=== PATIENT | male | born 1965 | race Caucasian/White ===

== ENCOUNTER → 2016-12-27 | Day surgery (SDC) | payer OTHER ==
[~2016-12-27] VITALS: Ht 172.7 cm; Wt 92.1 kg
[~2016-12-27] MED LIST: JANUVIA25 MG PO; LANTUS100 U/ML SC; METFORMIN500 MG PO
--- NOTE | ~2016-12-27 | O ---
[place], [place] OPERATIVE NOTE NAME: TULIO STEWARD UNIT #: [id number] ROOM: DOCTOR: MARE SHRESTHA MD BIRTHDATE: [birth year] DOS: 12/27/2016 INDICATIONS: A 51-year-old patient who presents with chief complaint of concern about nonspecific abdominal pain and undergoing colonic screening. ALLERGIES: No known medication. SOCIAL HISTORY: Nonsmoker or alcohol consumer. PAST MEDICAL HISTORY: Hypercholesterolemia, hypertension, diabetes mellitus. PAST SURGICAL HISTORY: Unremarkable. PROCEDURE: Today's procedure part of investigation is colonoscopy. PREMEDICATION: Versed and Diprivan. SCOPE: Olympus forward viewing colonoscope 10L video. REPORT: After putting the patient in the left lateral position and after application of lubricant to rectal pouch and digital examination, scope was introduced. Thereafter, under direct visualization, I advanced through the length of colon without difficulty. Base of the cecum explored, appendiceal orifice identified, and ileocecal valve was defined. The patient was gradually extubated from ascending, transverse, descending colon. He tolerated the procedure well. IMPRESSION: Normal colonoscopic examination. PLAN: High fiber food diet. ACTIVITY: Ad yadira. FOLLOWUP: Routinely with you in office, p.r.n. visit with us in [facility]. Thank you very much indeed for your kind referral. [place], [place] OPERATIVE NOTE NAME: TULIO STEWARD UNIT #: [id number] ROOM: DOCTOR: MARE SHRESTHA MD BIRTHDATE: [birth year] MARE SHRESTHA MD CM:OPRECORD:OPERATIVE NOTE [id number] MARE SHRESTHA MD 12/27/16820 interface
[2016-12-27 06:58] VITALS: BP 106/76
[2016-12-27 07:49] VITALS: BP 111/66
[2016-12-27 08:04] VITALS: BP 108/62
[2016-12-27 08:19] VITALS: BP 116/62
== END | disposition home or self-care (01) ==
LOC: SDC 12-22 09:30
DX: R10.9 Unspecified abdominal pain (principal); E11.9 Type 2 diabetes mellitus without complications; E78.00 Pure hypercholesterolemia, unspecified; I10 Essential (primary) hypertension

== ENCOUNTER → 2020-08-03 | Outpatient (CLI) | payer OTHER ==
[2020-08-03 10:43] LABS: BASO # 0.1 10*3/uL (0.0-0.1); BASO % 0.6 % (0.0-1.0); EOS # 0.3 10*3/uL (0.0-0.4); HEMATOCRIT 38.6 % (42.0-52.0); LYMPH # 1.7 10*3/uL (1.3-4.4); LYMPH % 21.3 % (27.0-41.0); MEAN CELL VOLUME 93.7 fl (80.0-94.0); MEAN CORPUSCULAR HGB 29.9 pg (27.0-31.0); MEAN CORPUSCULAR HGB CONC 31.9 g/dl (33.0-37.0); MEAN PLATELET VOLUME 9.9 fl (9.6-12.3); MONO # 0.6 10*3/uL (0.1-1.0); MONO % 6.9 % (3.0-9.0); NEUT # 5.4 10*3/uL (2.3-7.9); NEUT % 66.7 % (47.0-73.0); PLATELET COUNT AUTOMATED 171 10*3/uL (130-400); RED BLOOD COUNT 4.12 10*6/uL (4.50-5.90); RED CELL DISTRI WIDTH 12.2 % (0-14.5); WHITE BLOOD COUNT 8.2 10*3/uL (4.8-10.8)
[2020-08-03 11:13] LABS: ALBUMIN 3.5 gm/dl (3.1-4.5); ALKALINE PHOSPHATASE 67 U/L (45-117); BUN 9 mg/dl (7-24); CHLORIDE 103 mmol/L (98-107); CHOLESTEROL 228 mg/dL (<200); CREATININE 0.91 mg/dL (0.70-1.30); FREE T4 0.88 ng/dl (0.76-1.46); HDL CHOLESTEROL 58 mg/dl (40-60); LDL CHOLESTEROL 134 mg/dL (9-159); POTASSIUM 4.2 mmol/L (3.5-5.1); SGOT/AST 17 IU/L (3-35); SGPT/ALT 32 U/L (12-78); SODIUM 138 mmol/L (136-145); TOTAL PROTEIN 7.2 gm/dL (6.4-8.2); TRIGLYCERIDES 181 mg/dl (<150); VLDL CHOLESTEROL 36 mg/dL (6-40)
[2020-08-03 12:15] LABS: VITAMIN D, 25-HYDROXY 32.5 ng/mL (30-100)
== END | disposition home or self-care (01) ==
LOC: LAB 10:11
PROVIDERS: ATTEND Internal Medicine
DX: E11.9 Type 2 diabetes mellitus without complications (principal); I10 Essential (primary) hypertension; E29.1 Testicular hypofunction; E11.65 Type 2 diabetes mellitus with hyperglycemia; R53.81 Other malaise; E55.9 Vitamin D deficiency, unspecified; E03.9 Hypothyroidism, unspecified; D52.9 Folate deficiency anemia, unspecified; D51.9 Vitamin B12 deficiency anemia, unspecified

== ENCOUNTER 2023-12-09 13:06 | Emergency (ER) | payer OTHER ==
[~2023-12-09] VITALS: Ht 172.7 cm; Wt 93.0 kg
[2023-12-09] MEDS ORDERED: PREDNISONE50 MG PO (13:57)
[2023-12-09] MEDS ORDERED: methylPREDNISolone sod succ 125 MG VIAL IM ONE (14:00)
== END 2023-12-09 14:04 | disposition home or self-care (01) ==
LOC: ED 13:06
DX: I77.6 Arteritis, unspecified (principal); E11.9 Type 2 diabetes mellitus without complications; Z79.4 Long term (current) use of insulin

== ENCOUNTER → 2024-03-04 | Outpatient (CLI) | payer OTHER ==
[~2024-03-04] MED LIST changes: +PREDNISONE50 MG PO
== END | disposition home or self-care (01) ==
LOC: MRI 12:29
PROVIDERS: ATTEND Internal Medicine
DX: I67.82 Cerebral ischemia (principal); J34.9 Unspecified disorder of nose and nasal sinuses; M47.812 Spondylosis without myelopathy or radiculopathy, cervical region; M50.23 Other cervical disc displacement, cervicothoracic region; M48.03 Spinal stenosis, cervicothoracic region; G37.9 Demyelinating disease of central nervous system, unspecified

== ENCOUNTER → 2024-03-28 | Outpatient (CLI) | payer OTHER ==
[~2024-03-28] MED LIST changes: +FARXIGA10 M1 PO; +JANUVIA100 MG PO; -LANTUS100 U/ML SC; +LANTUS100 UNIT/1 SQ; +LIPITOR40 MG PO; +MELOXICAM7.5 MG PO; +NEURONTIN100 MG PO; +Regadenoson 0.4 MG/5 ML SYR IV ONE; +ZESTRIL2.5 MG PO
== END | disposition home or self-care (01) ==
LOC: CARD 00:44
PROVIDERS: ATTEND Internal Medicine
DX: R07.9 Chest pain, unspecified (principal); R06.02 Shortness of breath; R53.83 Other fatigue; I10 Essential (primary) hypertension

== ENCOUNTER → 2024-03-31 | Outpatient (CLI) | payer OTHER ==
[~2024-03-31] MED LIST changes: -Regadenoson 0.4 MG/5 ML SYR IV ONE
== END | disposition home or self-care (01) ==
LOC: CARD 01:15
PROVIDERS: ATTEND Internal Medicine
DX: R06.02 Shortness of breath (principal)